=== PATIENT | female | born 1965 | race Caucasian/White ===

== ENCOUNTER 2017-11-14 11:55 | Day surgery (SDC) | payer OTHER ==
[~2017-11-14] VITALS: Ht 162.6 cm; Wt 72.7 kg
[~2017-11-14 11:55] MED LIST: HYDACE5 PO
== END 2017-11-14 13:52 | disposition home or self-care (01) ==
LOC: ORSCSDS 11:55
PROVIDERS: Internal Medicine Gastroenterology
PROC: 0DBM8ZX Excision of Descending Colon, Via Natural or Artificial Opening Endoscopic, Diagnostic (ICD-10-PCS; principal; 2017-11-14 13:15)
PROC: 0DBP8ZX Excision of Rectum, Via Natural or Artificial Opening Endoscopic, Diagnostic (ICD-10-PCS; principal; 2017-11-14 13:15)
DX: K62.5 Hemorrhage of anus and rectum (principal); D12.4 Benign neoplasm of descending colon; K64.8 Other hemorrhoids; K57.30 Diverticulosis of large intestine without perforation or abscess without bleeding; F17.210 Nicotine dependence, cigarettes, uncomplicated
CPT/HCPCS: 88305

== ENCOUNTER → 2019-04-12 | Outpatient (CLI) | payer OTHER | END | disposition home or self-care (01) | LOC: LAB 13:50 → LAB SHORT 13:50 | DX: N39.0 Urinary tract infection, site not specified (principal); N39.41 Urge incontinence | CPT/HCPCS: 87077; 87086; 87186 ==

== ENCOUNTER → 2021-03-09 | Outpatient (CLI) | payer OTHER | END | disposition home or self-care (01) | LOC: LAB SHORT 13:30 → LAB 13:30 | PROVIDERS: Registered Nurse | DX: Z12.4 Encounter for screening for malignant neoplasm of cervix (principal) | CPT/HCPCS: G0123 ==

== ENCOUNTER 2021-12-25 16:32 | Emergency (ER) | payer OTHER ==
[~2021-12-25] VITALS: Ht 172.7 cm; Wt 70.3 kg
== END 2021-12-25 21:02 | disposition home or self-care (01) ==
LOC: ER 16:32
DX: H57.02 Anisocoria (principal); Z88.0 Allergy status to penicillin; Z87.891 Personal history of nicotine dependence
CPT/HCPCS: 36415; 70450; 70496; 70498; 99284-25; Q9967

== ENCOUNTER 2022-06-13 06:20 | Day surgery (SDC) | payer OTHER ==
[~2022-06-13] VITALS: Ht 162.6 cm; Wt 76.8 kg
--- NOTE | 2022-06-13 09:42 | NUR ---
06/13/22 0942 Alvaro Mak PATIENT COMPLAINED OF POST-OP ITCHING. CLAIMED SHE IS ALERGIC TO ALL OPIATES. DR. HUERTA INFORMED AND ITCHING RESOLVED SPONTANEOUSLY. NO RASH, HIVES, OR BEATHING DIFFICULTIES WERE OBSERVED. PATIENT WAS ADVISED TO CONSULT A PHARMACIST WHILE FILLING HER PERSCRIPTION FOR TRAMADOL. PATIENT WAS GIVEN PERSCRIPTION FOR TRAMADOL BUT INSTRUCTED TO TAKE OVER THE COUNTER PAIN MEDICATION, IF UNCOMFORTABLE TAKING IT, PER DR. PANTOJA'S INSTRUCTIONS. PATIENT STATED SHE WAS FREE OF ITCHING, PAIN, AND NAUSEA PRIOR TO DISCHARGE.
== END 2022-06-13 09:16 | disposition home or self-care (01) ==
LOC: ORSCSDS 06:20
PROVIDERS: Orthopaedic Surgery
PROC: 01N50ZZ Release Median Nerve, Open Approach (ICD-10-PCS; principal; 2022-06-13 07:30)
PROC: 0RBP0ZZ Excision of Left Wrist Joint, Open Approach (ICD-10-PCS; principal; 2022-06-13 07:30)
DX: G56.03 Carpal tunnel syndrome, bilateral upper limbs (principal); M71.332 Other bursal cyst, left wrist; L43.9 Lichen planus, unspecified; F41.9 Anxiety disorder, unspecified; M19.90 Unspecified osteoarthritis, unspecified site; Z87.891 Personal history of nicotine dependence
CPT/HCPCS: J2250; J2704; J3010; J7120

== ENCOUNTER → 2022-12-25 | Outpatient (CLI) | payer OTHER | LOC: LAB 08:14 → LAB SHORT 08:14 | DX: L60.2 Onychogryphosis (principal); B35.1 Tinea unguium | CPT/HCPCS: 88304; 88312 ==

== ENCOUNTER → 2023-10-12 | Outpatient (CLI) | payer OTHER ==
[2023-10-12 13:24] LABS: CHOL/HDL RATIO 2.3; Cholesterol 232 mg/dL (50-200); HDL Cholesterol 102 mg/dL (>39); LDL/HDL RATIO 1.1; Low Density Lipoprotein Chol 113 mg/dL (0-110); Triglycerides 83 mg/dL (30-160); Very Low Density Lipoprot Chol 16 mg/dL (6-32)
[2023-10-14 03:42] LABS: A/G RATIO 1.7 (1.2-2.2); BILIRUBIN, TOTAL 0.9 mg/dL (0.0-1.2); CREATININE, SERUM 0.73 mg/dL (0.57-1.00); GLOBULIN, TOTAL 2.5 g/dL (1.5-4.5); POTASSIUM, SERUM 4.3 mmol/L (3.5-5.2); PROTEIN, TOTAL, SERUM 6.8 g/dL (6.0-8.5)
== END ==
LOC: LAB 11:38 → LAB SHORT 11:38
PROVIDERS: Student in an Organized Health Care Education/Training Program
DX: E66.9 Obesity, unspecified (principal); Z13.6 Encounter for screening for cardiovascular disorders
CPT/HCPCS: 80053; 80061

== ENCOUNTER → 2025-06-30 | Outpatient (CLI) | payer OTHER | END | disposition home or self-care (01) | LOC: LAB SHORT 14:13 → LAB 14:13 | DX: E03.9 Hypothyroidism, unspecified (principal) | CPT/HCPCS: 84443 ==